=== PATIENT | male | born 1995 | race African-American/Black ===

== ENCOUNTER 2017-11-02 17:10 | Emergency (ER) | payer MEDICAID, OTHER ==
[~2017-11-02] VITALS: Ht 185.4 cm; Wt 90.0 kg
[~2017-11-02 17:10] MED LIST: IBUP-232 PO; Z.0.NO CURRENT MEDS
[2017-11-02 17:20] VITALS: BP 138/69; PULSE 97; RESP 16; TEMP 99; O2SAT 98
--- NOTE | 2017-11-02 18:26 | PD ---
HPI . cold/flu symptoms (Jewell Cantor MD) Chief Complaint: Cold / Flu Symptoms Time Seen by Provider: 18:16 (Jewell Cantor MD) Time Seen by Provider: 18:16 (Cori Cheney) Travel History International Travel<30 days: No Contact w/Intl Traveler<30days: No Traveled to known affect area: No (Jewell Cantor MD) History of Present Illness HPI 22-year-old male here with cough 2 weeks. He developed right-sided rib pain for the last 3 days. Pain is worse with coughing and movement. Denies chest pain, shortness of breath, nausea or vomiting. Symptom severity is moderate. (Cori Cheney) PFSH Past Medical History Medical History: Denies Significant Hx Diminished Hearing: No Immunizations Current: Yes (Jewell Cantor MD) Medical History: Denies Significant Hx (Cori Cheney) Past Surgical History Surgical History: No Previous Surgery (Jewell Cantor MD) Social History Alcohol Use: Yes (RARE) Tobacco Use: Yes (1 PPD) Substance Use: No (Jewell Cantor MD) Allergies-Medications (Allergen,Severity, Reaction): Coded Allergies: No Known Allergies (Verified Adverse Reaction, Unknown, 11/02/17) Reported Meds & Prescriptions Reported Meds & Active Scripts Active No Active Prescriptions or Reported Medications (Cori Cheney) Review of Systems Except as stated in HPI: all other systems reviewed are Neg (Jewell Cantor MD) Except as stated in HPI: all other systems reviewed are Neg Eyes: No: Visual changes HENT: No: Headaches Cardiovascular: No: Chest Pain or Discomfort Respiratory: Positive: Cough, Pleuritic Pain Gastrointestinal: No: Abdominal Pain Genitourinary: No: Dysuria (Cori Cheney) Physical Exam Narrative GENERAL: Alert male. Well-appearing. SKIN: Warm and dry. HEAD: Normocephalic. EYES: No injection or drainage. NECK: Supple, trachea midline. CARDIOVASCULAR: Regular rate and rhythm without murmurs, gallops, or rubs. No tenderness to the right lateral ribs on palpation. No crepitus felt. RESPIRATORY: Breath sounds equal bilaterally. No accessory muscle use. GASTROINTESTINAL: Abdomen soft, non-tender, nondistended. (Cori Cheney) Data Data Last Documented VS Vital Signs Date Time Temp Pulse Resp B/P (MAP) Pulse Ox O2 Delivery O2 Flow Rate FiO2 11/02/17 17:35 Room Air 11/02/17 17:20 99.0 97 16 138/69 (92) 98 (Cori Cheney) Orders Orders Chest, Single Ap (11/02/17 ) (Cori Cheney) MDM Medical Decision Making Medical Screen Exam Complete: Yes Emergency Medical Condition: Yes Differential Diagnosis Arthritis, pneumonia, pleurisy, pneumothorax, Narrative Course 22-year-old male here with cough 2 weeks. He now has right-sided rib pain worse with coughing and movement. He is well-appearing. Vital signs are stable. Chest x-ray no acute cardiopulmonary disease. Patient will be treated for bronchitis (Cori Cheney) Diagnosis Primary Impression: Bronchitis Referrals: [facility] Additional Instructions: Take [id number] ibuprofen 800 mg every 6 hours as needed for pain Scripts Benzonatate (Tessalon Perles) 100 Mg Cap 200 MG PO TID Y for COUGH, #12 CAP 0 Refills Prov: Cori Cheney 11/02/17 Azithromycin (Azithromycin) 250 Mg Tab 250 MG PO DIRECTED for Infection, #6 TAB 0 Refills Take 2 tabs (500 mg) on day 1 then 1 tab daily x 4 days. Prov: Cori Cheney 11/02/17 Disposition: 01 DISCHARGE HOME Condition: Stable Jewell Cantor MD Nov 02, 2017 18:26 Cori Cheney Nov 02, 2017 18:52
--- NOTE | 2017-11-02 18:50 | RADRPT ---
EXAM DATE/TIME: 11/02/2017 18:35 [place] COMPARISON: No previous studies available for comparison. INDICATIONS : Cough and chest pain for 3 days. MEDICAL HISTORY : None. SURGICAL HISTORY : None. ENCOUNTER: Initial ACUITY: 3 days PAIN SCORE: 4/10 LOCATION: Bilateral chest FINDINGS: A single view of the chest demonstrates the lungs to be symmetrically aerated without evidence of mas s, infiltrate or effusion. The cardiomediastinal contours are unremarkable. Osseous structures are intact. CONCLUSION: No acute disease. Michael Leahy MD on November 02, 2017 at 18:48 Board Certified Radiologist. This report was verified electronically.
[2017-11-02] MEDS ORDERED: AZIT250T3 PO (19:00)
[2017-11-02] MEDS ORDERED: BENZ100 PO (19:00)
== END 2017-11-02 19:04 | disposition home or self-care (01) ==
LOC: PHEFT 17:10
DX: J40 Bronchitis, not specified as acute or chronic (principal); F17.210 Nicotine dependence, cigarettes, uncomplicated
CPT/HCPCS: 71045; 99284